=== PATIENT | female | born 1985 | race American Indian/Alaskan Native ===

== ENCOUNTER 2020-10-11 17:30 | Emergency (ER) | payer MEDICAID ==
[2020-10-11 17:51] VITALS: BP 128/66
[2020-10-11 19:09] LABS: Basophils % (Auto) 0.3 % (0.0-1.8); Eosinophils # (Auto) 0.1 K/mm3 (0.0-0.4); Eosinophils % (Auto) 1.1 % (0.0-4.3); Hematocrit 37.2 % (30.3-42.9); Hemoglobin 12.4 gm/dl (10.1-14.3); Lymphocytes # (Auto) 3.2 K/mm3 (1.2-5.4); Lymphocytes % (Auto) 52.1 % (13.4-35.0); Mean Corpuscular HGB Conc 33 % (30-34); Mean Corpuscular Volume 100 fl (79-97); Monocytes # (Auto) 0.5 K/mm3 (0.0-0.8); Monocytes % (Auto) 8.5 % (0.0-7.3); Platelet Count 325 K/mm3 (140-440); Red Blood Count 3.72 M/mm3 (3.65-5.03); Red Cell Distribution Width 13.1 % (13.2-15.2)
--- NOTE | 2020-10-11 19:11 | XRay Report ---
XR chest routine 2V INDICATION / CLINICAL INFORMATION: SOB COMPARISON: None available. FINDINGS: SUPPORT DEVICES: None. HEART / MEDIASTINUM: No significant abnormality. LUNGS / PLEURA: Lungs are clear. Costophrenic sulci are sharp. No pneumothorax. ADDITIONAL FINDINGS: Dextroscoliosis of the thoracic spine. IMPRESSION: 1. No acute findings. Signer Name: Chas Oconnor MD Signed: 10/11/2020 7:07 PM Workstation Name: [id number]
[2020-10-11 19:24] LABS: Alanine Aminotransferase 14 units/L (7-56); Albumin 4.1 g/dL (3.9-5); Blood Urea Nitrogen 8 mg/dL (7-17); Calcium 9.2 mg/dL (8.4-10.2); Hemolysis Index 2
[2020-10-11 19:29] LABS: BUN/Creatinine Ratio 13
[2020-10-11 20:30] LABS: ABG HCO3 24.7 mmol/L (20.0-26.0); ABG Methemoglobin 0.4 % (0.0-1.5); ABG Oxygen Saturation 97.4 % (95.0-99.0); ABG PCO2 40.6 mm Hg; ABG PH 7.403 pH Units (7.350-7.450); ABG PO2 95.7 mm Hg (80.0-90.0)
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
== END 2020-10-11 21:17 | disposition home or self-care (01) ==
LOC: ED 17:30
DX: T59.811A Toxic effect of smoke, accidental (unintentional), initial encounter (principal); R07.9 Chest pain, unspecified; Z00.00 Encounter for general adult medical examination without abnormal findings; Y92.89 Other specified places as the place of occurrence of the external cause
CPT/HCPCS: 36415; 71046; 80053; 82375; 82803; 84703; 85025

== ENCOUNTER 2021-11-22 09:10 | Emergency (ER) | payer MEDICAID ==
[2021-11-22 09:19] VITALS: BP 116/80
--- NOTE | 2021-11-22 09:47 | Emergency Department Report ---
ED General Adult HPI - General Chief complaint: Pain General Stated complaint: GENERAL PAIN PUI?: No Time Seen by Provider: 11/22/21 09:28 Source: patient Mode of arrival: Ambulatory Limitations: No Limitations - History of Present Illness Initial comments: Patient is a 36-year-old female that comes to the emergency room with left-sided chest pain. She has had this pain off and on for 7 months. She denies any shortness of breath. Denies fever or chills. She woke up with it this morning so her fianc made her come to the ER. Patient took nothing prior to arrival. She has had prior work-ups at other facilities and they have all been negative. She does not follow with a primary care doctor. Patient adds later in her stay that she has fibromyalgia. -: Gradual, month(s) Improves with: none Worsens with: none Associated Symptoms: denies other symptoms Treatments Prior to Arrival: none - Related Data Allergies Allergy/AdvReac Type Severity Reaction Status Date / Time No Known Allergies Allergy Unverified 10/11/20 17:49 ED Review of Systems ROS: Stated complaint: GENERAL PAIN Other details as noted in HPI Comment: All other systems reviewed and negative ED Past Medical Hx - Past Medical History Previous Medical History?: Yes Additional medical history: pleuresy, fibromyalgia - Surgical History Past Surgical History?: Yes - Family History Family history: no significant - Social History Smoking Status: Current Some Day Smoker Substance Use Type: Alcohol, Marijuana ED Physical Exam - General Limitations: No Limitations General appearance: alert, in no apparent distress - Head Head exam: Present: atraumatic, normocephalic - Eye Eye exam: Present: normal appearance - ENT ENT exam: Present: mucous membranes moist - Neck Neck exam: Present: normal inspection - Respiratory Respiratory exam: Present: normal lung sounds bilaterally. Absent: respiratory distress - Cardiovascular Cardiovascular Exam: Present: regular rate, normal rhythm. Absent: systolic murmur, diastolic murmur, rubs, gallop - GI/Abdominal GI/Abdominal exam: Present: soft, normal bowel sounds - Extremities Exam Extremities exam: Present: normal inspection - Back Exam Back exam: Present: normal inspection - Neurological Exam Neurological exam: Present: alert, oriented X3 - Psychiatric Psychiatric exam: Present: normal affect, normal mood - Skin Skin exam: Present: warm, dry, intact, normal color. Absent: rash ED Course Vital Signs 11/22/21 09:16 Temperature 98.4 F Pulse Rate 80 Respiratory 16 Rate Blood Pressure 116/80 O2 Sat by Pulse 96 Oximetry ED Medical Decision Making - EKG Data -: EKG Interpreted by Me EKG shows normal: sinus rhythm Rate: normal - EKG Data When compared to previous EKG there are: no significant change Interpretation: no acute changes - Radiology Data Radiology results: report reviewed, image reviewed No acute process - Medical Decision Making Vital Signs 11/22/21 09:16 Temperature 98.4 F Pulse Rate 80 Respiratory 16 Rate Blood Pressure 116/80 O2 Sat by Pulse 96 Oximetry Chest x-ray normal. EKG normal. I explained to the patient that this is a chronic pain. She is otherwise healthy. She has normal vital signs. With her history of fibromyalgia I am discharging her home with [id number] pain relief. She is to follow-up with PCP. On discharge she is ambulatory with no pain, nontoxic, [id number], with no fever, and taking p.o. She is laughing and talking with her fianc. Patient verbalizes understanding of discharge plan - Differential Diagnosis URI, musculoskeletal pain Critical care attestation.: If time is entered above; I have spent that time in minutes in the direct care of this critically ill patient, excluding procedure time. ED Disposition Clinical Impression: Nonspecific chest pain, Fibromyalgia Disposition: HOME / SELF CARE / HOMELESS Is pt being admited?: No Does the pt Need Aspirin: No Condition: Stable Instructions: Nonspecific Chest Pain, Adult Additional Instructions: Avoid noxious toxic odors and chemicals: Such as smoke and household cleaning products. Limit your smoking. Follow-up with primary care if symptoms persist. Motrin or Tylenol for pain. Stay well-hydrated with water Referrals: [facility] [Other] - 3-5 Days RAQUEL NOVA MD [Staff Physician] - 3-5 Days Forms: Work/School Release Form(ED) Time of Disposition: 10:18
--- NOTE | 2021-11-22 10:33 | XRay Report ---
CHEST 2 VIEWS INDICATION: cp. COMPARISON: 10/11/2020 FINDINGS: SUPPORT DEVICES: None. HEART: Within normal limits. LUNGS/PLEURA: No acute air space or interstitial disease. No pneumothorax. ADDITIONAL FINDINGS: Mild dextroscoliosis centered in the midthoracic spine. IMPRESSION: 1. No acute findings. Signer Name: Nile Obando MD Signed: 11/22/2021 10:29 AM Workstation Name: [id number]
--- NOTE | 2021-11-22 12:06 | Electrocardiograph Report ---
[facility] Test Date: 2021-11-22 Test Time: 09:58:59 Pat Name: CIELO DE LOS SANTOS Department: Room: Gender: F Pit Boss: SHELLI : 1985 Requested By: BRIJESH BELTRE Order Number: [id number] Reading MD: Pascual Gonzales Measurements Intervals [place] Rate: 72 P: 52 RI: 180 QRS: 51 QRSD: 93 T: 37 QT: 409 QTc: 447 Interpretive Statements Sinus rhythm Probable left atrial enlargement No previous ECG available for comparison Electronically Signed On 11-22-2021 12:06:15 EDT by Pascual Gonzales
== END 2021-11-22 10:15 | disposition home or self-care (01) ==
LOC: ED 09:10
DX: R07.9 Chest pain, unspecified (principal); M79.7 Fibromyalgia; F17.200 Nicotine dependence, unspecified, uncomplicated; F10.20 Alcohol dependence, uncomplicated; F12.90 Cannabis use, unspecified, uncomplicated
CPT/HCPCS: 71046; 93005; 99283